=== PATIENT | male | born 1995 | race Caucasian/White ===

== ENCOUNTER 2017-12-27 02:09 | Emergency (ER) | payer OTHER, MEDICAID ==
[2017-12-27 07:01] LABS: BASO % 0.2 % (0.0-1.0); EOS % 0.1 % (0.0-3.0); HEMATOCRIT 43.5 % (42.0-52.0); HEMOGLOBIN 15.4 g/dl (13.5-17.5); IMMATURE GRANULOCYTE % 0.2 % (0-3.0); LYMPH # 1.6 10^3/uL (1.5-6.5); MEAN CORPUSCULAR HGB CONC 35.4 g/dl (32.0-36.5); MEAN CORPUSCULAR VOLUME 84.6 fl (80.0-96.0); MONO # 0.3 10^3/uL (0.0-0.8); MONO % 2.3 % (0.0-5.0); NEUTROPHILS # 8.9 10^3/uL (1.8-7.7); NEUTROPHILS % 82.2 % (36.0-66.0); PLATELET COUNT, AUTOMATED 248 10^3/uL (150-450); RED BLOOD COUNT 5.14 10^6/uL (4.30-6.10); RED CELL DISTRIBUTION WIDTH 11.5 % (11.5-14.5); WHITE BLOOD COUNT 10.8 10^3/uL (4.0-10.0)
[2017-12-27 07:13] LABS: INR 1.09; PROTHROMBIN TIME 14.2 SECONDS (12.1-14.4)
[2017-12-27 07:14] LABS: ANION GAP 7 MEQ/L (8-16); BLOOD UREA NITROGEN 14 MG/DL (7-18); CALCIUM LEVEL 8.8 MG/DL (8.5-10.1); CARBON DIOXIDE LEVEL 27 MEQ/L (21-32); CHLORIDE LEVEL 107 MEQ/L (98-107); CREATININE FOR GFR 1.03 MG/DL (0.70-1.30); GLOMERULAR FILTRATION RATE > 60.0 (>60); GLUCOSE, FASTING 112 MG/DL (70-100); PARTIAL THROMBOPLASTIN TIME 38.5 SECONDS (25.4-37.6); POTASSIUM SERUM 4.1 MEQ/L (3.5-5.1); SODIUM LEVEL 141 MEQ/L (136-145)
== END 2017-12-27 07:43 | disposition home or self-care (01) ==
LOC: M ED 02:09
DX: F33.9 Major depressive disorder, recurrent, unspecified (principal); K62.5 Hemorrhage of anus and rectum; Z79.899 Other long term (current) drug therapy; Z87.891 Personal history of nicotine dependence
CPT/HCPCS: 80048

== ENCOUNTER → 2018-01-01 | Outpatient (CLI) | payer OTHER ==
[2018-01-01 16:49] LABS: BASO % 0.4 % (0.0-1.0); EOS # 0.1 10^3/uL (0.0-0.50); EOS % 1.6 % (0.0-3.0); HEMATOCRIT 46.2 % (42.0-52.0); IMMATURE GRANULOCYTE % 0.2 % (0-3.0); LYMPH # 2.3 10^3/uL (1.5-6.5); LYMPH % 28.8 % (24.0-44.0); MEAN CORPUSCULAR HGB CONC 34.6 g/dl (32.0-36.5); MEAN CORPUSCULAR VOLUME 86.7 fl (80.0-96.0); MONO # 0.7 10^3/uL (0.0-0.8); MONO % 8.1 % (0.0-5.0); NEUTROPHILS # 4.9 10^3/uL (1.8-7.7); NEUTROPHILS % 60.9 % (36.0-66.0); PLATELET COUNT, AUTOMATED 258 10^3/uL (150-450); RED BLOOD COUNT 5.33 10^6/uL (4.30-6.10); RED CELL DISTRIBUTION WIDTH 11.8 % (11.5-14.5)
[2018-01-01 16:56] LABS: ALBUMIN 4.3 GM/DL (3.2-5.2); ALBUMIN/GLOBULIN RATIO 1.23 (1.00-1.93); ALKALINE PHOSPHATASE 60 U/L (45-117); ALT/SGPT 23 U/L (12-78); ANION GAP 6 MEQ/L (8-16); AST/SGOT 11 U/L (7-37); BLOOD UREA NITROGEN 15 MG/DL (7-18); CALCIUM LEVEL 9.2 MG/DL (8.5-10.1); CARBON DIOXIDE LEVEL 32 MEQ/L (21-32); CHLORIDE LEVEL 105 MEQ/L (98-107); CREATININE FOR GFR 0.85 MG/DL (0.70-1.30); GLOMERULAR FILTRATION RATE > 60.0 (>60); GLUCOSE, FASTING 78 MG/DL (70-100); LIPASE 201 U/L (73-393); POTASSIUM SERUM 4.5 MEQ/L (3.5-5.1); SODIUM LEVEL 143 MEQ/L (136-145); TOTAL PROTEIN 7.8 GM/DL (6.4-8.2)
== END ==
LOC: M WUC 15:11
DX: R10.84 Generalized abdominal pain (principal); K92.1 Melena
CPT/HCPCS: 83690

== ENCOUNTER 2019-12-24 22:44 | Inpatient (IN) | payer OTHER ==
[~2019-12-24] VITALS: Ht 185.4 cm; Wt 85.5 kg
[~2019-12-24 22:44] MED LIST: ESCI10TA2 PO; no home meds
[2019-12-25 00:14] LABS: HEMATOCRIT 41.2 % (42.0-52.0); HEMOGLOBIN 13.8 g/dl (13.5-17.5); MEAN CORPUSCULAR HEMOGLOBIN 28.9 pg (27.0-33.0); MEAN CORPUSCULAR HGB CONC 33.5 g/dl (32.0-36.5); MEAN CORPUSCULAR VOLUME 86.4 fl (80.0-96.0); PLATELET COUNT, AUTOMATED 216 10^3/uL (150-450); RED BLOOD COUNT 4.77 10^6/uL (4.30-6.10); WHITE BLOOD COUNT 6.3 10^3/uL (4.0-10.0)
[2019-12-25 00:22] LABS: ACETAMINOPHEN LEVEL < 2.0 UG/ML (10.0-30.0); ALT/SGPT 24 U/L (12-78); BILIRUBIN,DIRECT 0.2 MG/DL (0.0-0.2); BILIRUBIN,TOTAL 0.3 MG/DL (0.2-1.0); BLOOD UREA NITROGEN 12 MG/DL (7-18); CALCIUM LEVEL 8.7 MG/DL (8.5-10.1); CARBON DIOXIDE LEVEL 28 MEQ/L (21-32); CHLORIDE LEVEL 108 MEQ/L (98-107); CREATININE FOR GFR 0.95 MG/DL (0.70-1.30); ETHYL ALCOHOL (ETHANOL) < 0.003 % (0.000-0.010); GLOMERULAR FILTRATION RATE > 60.0 (>60); GLUCOSE, FASTING 93 MG/DL (70-100); POTASSIUM SERUM 3.8 MEQ/L (3.5-5.1); SALICYLATE LEVEL < 1.7 MG/DL (5.0-30.0); SODIUM LEVEL 144 MEQ/L (136-145)
[2019-12-25 08:48] LABS: AMPHETAMINES LEVEL URINE NEGATIVE (NEGATIVE); BARBITURATES URINE NEGATIVE (NEGATIVE); BENZODIAZEPINES URINE NEGATIVE (NEGATIVE); CANNABINOIDS URINE NEGATIVE (NEGATIVE); COCAINE METABOLITE URINE NEGATIVE (NEGATIVE); METHADONE URINE NEGATIVE (NEGATIVE); OPIATES URINE NEGATIVE (NEGATIVE); PHENCYCLIDINE URINE NEGATIVE (NEGATIVE)
[2019-12-25] MEDS ORDERED: ACETAMINOPHEN TAB 650MG DOSE (2X325MG) PO PRN (17:15)
[2019-12-25] MEDS ORDERED: MAALOX 30 ML SUSP *UDC PO PRN (17:15)
[2019-12-25] MEDS ORDERED: MOM 30ML SUSPENSION UDC PO PRN (17:15)
[2019-12-25] MEDS ORDERED: traZODone 50 MG TAB PO PRN (17:15)
[2019-12-25 21:08] VITALS: BP 148/90
[2019-12-26 06:50] VITALS: BP 136/78
--- NOTE | 2019-12-26 08:22 | MHHPEPDOC ---
[facility] History & Physical History and Physical DATE OF ADMISSION: Dec 25, 2019 at 17:08 HPI: Girish presents today for concerns regarding his statements made to his friend via text message that weren't overly suicidal but concering. . He reports his roommate noted some concerns with his behavior as he mentions he had just gotten out of a relationship. He reports symptoms of depression, low mood, loss of interest and insomnia. Girish denies a history of hallucinations, staying up at night for weeks doing terrible things he would otherwise never do, or a history of trauma. MEDICATIONS: Girish admits he took Lexapro in the past and states it was very helpful, but then developed a tolerance to it. He mentions he has been taking ADHD medication and its dosages were continually increased. MEDICAL HISTORY: Girish states he was at this same facility in 2016. FAMILY HISTORY: Girish notes suicidal tendencies and depression runs in both sides of his family. LABS: He stated feeling depression and had difficulty sleeping. Objective Appearance: Well groomed. Well nourished. Behavior: Pleasant. Engaged. Cooperative with good eye contact. Affect: Full range. Appropriate to context. Mood: Appropriately reactive. Euthymic. Generally good. Speech: Normal volume. Normal rate. Motor: No gross motor abnormalities. Cognition: Alert, Attentive, and Oriented to person, place, time. Memory: No gross abnormalities of short or penitentiary memory noted during interview. No formal testing. Thought Form: Linear and goal directed. Thought Content: No evidence of delusions. No thoughts of self harm. No evidence of aggressive or homicidal ideation. No evidence of suicidal ideation. Perception: No perceptual abnormalities noted. Judgement: intact as evidenced by decision making in the recent past. Insight: good insight into symptoms and treatment options. Assessment F33.1 Major depressive disorder, recurrent, moderate Plan Start Sertraline 25 mg daily. The risks, benefits as well as common side effects as well as alternative treatments (including non-treatment) were discussed with the patient both in g eneral and for their particular case. The patient selected this option out of a range. Treatment priorities include: 1. Risk for suicide 2. Depression. Length of stay will be between one and two days, and will observe him overnight. If does not meet involuntary criteria as of tomorrow, will discharge. Vital Signs Vital Signs Date Time Temp Pulse Resp B/P (MAP) Pulse Ox O2 Delivery O2 Flow Rate FiO2 12/26/19 06:50 97.1 63 16 136/78 (97) 96 Room Air Medications No Active Prescriptions or Reported Meds Allergies Coded Allergies: No Known Allergies (Unverified , 09/24/15) GABRIELLA SAEZ DO Dec 26, 2019 08:22
[2019-12-26] MEDS ORDERED: SERTRALINE HCL 25 MG TABLET PO ONE (09:45)
--- NOTE | 2019-12-26 15:15 | HPEPDOC ---
[facility] Medical History & Physical Date of Admission Dec 25, 2019 Date of Service: Dec 26, 2019 Attending Physician: Yany Jaimes MD History and Physical HISTORY OF PRESENT ILLNESS: The patient is a 24-year-old male and suicidal thoughts who was brought into [facility] emergency room on 12/24/2019 after friends had contacted the police with the concern of the patient having suicidal ideation. According to the patient had been struggling with thoughts of hurting himself and depression for quite sometimes. He states his depression had worsened over the past several months due to several stressors in his life. He has one prior psych admission to [facility] inpatient mental health unit in 2016. The patient was very calm and pleasant and at times guarded when he was initially admitted. He denies auditory and visual hallucinations, being tearful, self injury, chest pain, sugars of breath, fevers, chills. He admits to at times feeling hopeless and having increased anxiety. He also admits to having some decreased appetite in the week prior to him being admitted. He has a strong family history of depression. He denies substance abuse currently or history. He denies erratic behavior but admits to not sleeping well. During my evaluation today the patient was very cooperative and pleasant. REVIEW OF SYSTEMS: Negative except for what is mentioned above PAST MEDICAL HISTORY: 1. Suicidal ideation, prior inpatient mental health hospitalization 2015 2. Depression PAST SURGICAL HISTORY: 1. Multiple teeth removal FAMILY HISTORY: Father: Fibromyalgia. Alive Mother: Mental health issues unknown. Alive Siblings: PTSD, anxiety. Alive SOCIAL HISTORY: Patient denies smoking, alcohol or drug use. The patient currently resides with friends in the local area. He does not have a primary care provider and has not been following with the behavioral health specialist. He is a full code ALLERGIES: Please see below. HOME MEDICATIONS: Please see below. PHYSICAL EXAMINATION: CONSTITUTIONAL: No acute distress, AAO x 3 EYES: PERRLA, EOM intact HENT, MOUTH: Normocephalic, atraumatic, moist mucous membranes, NECK: SUPPLE, no JVD, no lymphadenopathy, no carotid bruit CV: Regular rate and rhythm, S1S2 normal, no murmurs/rubs/gallops RESPIRATORY: Clear to auscultation bilaterally, no rales/rhonchi/wheezes GI: BS positive in 4 quadrants, soft, nontender, nondistended, no rebound or guarding, no organomegaly : Deferred MUSCULOSKELETAL: Normal ROM. No cyanosis, clubbing, swelling, joint deformity, extremity edema INTEGUMENTARY: Intact, no rashes, no lesions, no erythema NEUROLOGIC: Cranial Nerves II-XII are intact, no focal deficits PSYCHIATRIC: Mood and affect are normal LABORATORY DATA: Please see below IMAGING: None ASSESSMENT: 24-year-old male admitted for unspecified depressive disorder, s uicidal ideation. PLAN: 1. Unspecified depressive disorder, suicidal ideation. -History of suicidal ideation with prior inpatient mental health admission -Plan and treatment per primary psychiatric team 2. Insomnia -Trazodone PRN DISPOSITION: At this time his current medical condition appears to be stable. Will sign off on his case; however, if we are needed to reassess please do not hesitate to call at any time. Vital Signs Vital Signs Date Time Temp Pulse Resp B/P (MAP) Pulse Ox O2 Delivery O2 Flow Rate FiO2 12/26/19 10:05 Room Air 12/26/19 06:50 97.1 63 16 136/78 (97) 96 Home Medications No Active Prescriptions or Reported Meds Allergies Coded Allergies: No Known Allergies (Unverified , 09/24/15) A-FIB/CHADSVASC A-FIB History Current/History of A-Fib/PAF?: No Current PO Anticoag Therapy: No Age/Risk Factor Scoring CHADSVASC: CHADSVASC Response (Comments) Value Age Risk Factor Age < 65 years old 0 Hx of CHF No 0 Hx of HTN No 0 Hx of Stroke/TIA/or VTE No 0 Hx of Diabetes No 0 Hx of Vascular Disease No 0 Total 0 Treatment Treatment ordered: NONE Other anticoagulant ordered: not necessary Yany Jaimes MD Dec 26, 2019 15:14
[2019-12-26 17:26] VITALS: BP 154/94
[2019-12-27 06:37] VITALS: BP 137/78
[2019-12-27] MEDS ORDERED: SERTRALINE HCL 25 MG TABLET PO SCH (09:00)
--- NOTE | 2019-12-27 10:29 | MHDSPDOC ---
[facility] Discharge Summary Discharge Summary DATE OF ADMISSION: Dec 25, 2019 at 17:08 DATE OF DISCHARGE: Dec 27, 2019 at 12:30 DISCHARGE DIAGNOSES: Major depressive disorder, recurrent moderate REASON FOR ADMISSION: 24-year-old man admitted after making concerning statements in the setting of depression CONSULTANTS INVOLVED:[ None (basic hospitalist screening)] TREATMENT AND PROGRESS ON THE UNIT : Medication changes: started on search lien 25 mg daily tolerated well with good improvement Behavior on unit: friendly and amenable Treatment attendance: attended well Notable issues on presentation: none State on discharge: [improved] DISCHARGE ASSESSMENT: The patient a 24 year old man, with likely depression, presented to [facility], where they treated with appropriate agent and make good improvement. Legal status considerations: The patient at the time of discharge did not meet criteria for involuntary admission/extension due to having a [normal] mental status exam, [fair] insight into the situation, They are engaged in the discharge process, as well as being friendly and amenable in behavioral control and havent been engaging in any observed concerning behavior or ideation recently. They decline voluntary extension/admission at this time and must be discharged in good maira, as Im unable to make a case for holding the patient against their will. They may have historical risk factors of admissions and other interactions with psychiatry however, those are not modifiable from a clinical perspective. The patient will need to be discharged in good maira. MENTAL STATUS EXAMINATION ON DISCHARGE: [General: Well dressed with good hygiene Speech: Spontaneous and fluid Thought processes: Linear and logical Thought content: Future orientated Abstract reasoning, and computation: Intact Description of associations: Intact Description of abnormal or psychotic thoughts:Denies any suicidal or homicidal ideation. Denies any auditory or visual hallucinations. Does not appear to be r esponding to internal stimuli. Does not appear to be endorsing any bizarre or paranoid ideation. Judgment: fair Insight: fair Orientation: Alert and orientated 3 Recent and remote memory: Intact Attention span and concentration: Intact Fund of knowledge: Adequate Mood: "okay" Affect: Euthymic with a full range] PLAN/FOLLOWUP ARRANGEMENTS: Follow up appointments made (PCP and MH in 5 days of D/C date) and safety plan completed. Safety Planning aspects completed prior to discharge [Medication supplies limited to 7 days with 4 refills to prevent accumulation to OD] [Family contact completed, educated on safe practices, instructed on removal and mitigation of dangerous means] [RN reviewed crisis hotline information and other aspects to empower patient to access care in interim before next appointment.] The amount of time spent in the coordination of care for this patient was approximately 30 minutes. Vital Signs/I&Os Vital Signs Date Time Temp Pulse Resp B/P (MAP) Pulse Ox O2 Delivery O2 Flow Rate FiO2 12/27/19 06:37 96.9 58 16 137/78 (97) 97 Room Air Medications Scheduled Sertraline HCl (Sertraline HCl) 25 Mg Tablet, 25 MG PO DAILY for mood for 7 Days, #7 Allergies Coded Allergies: No Known Allergies (Unverified , 09/24/15) GABRIELLA SAEZ DO Dec 27, 2019 10:29
[2019-12-27] MEDS ORDERED: SERT25TA21 PO (10:33)
== END 2019-12-27 12:30 | disposition home or self-care (01) | DRG 751 ==
LOC: M ED 22:44 → M ED INP 12-25 17:08 → M PSY 12-25 20:43
PROVIDERS: ADMIT Psychiatry & Neurology Addiction Medicine; ATTEND Psychiatry & Neurology Addiction Medicine
DX: F33.1 Major depressive disorder, recurrent, moderate (principal); R45.851 Suicidal ideations